=== PATIENT | female | born 1940 | race African-American/Black ===

== ENCOUNTER 2018-08-01 10:27 | Inpatient (IN) | payer MEDICARE, BC ==
[~2018-08-01] VITALS: Ht 182.9 cm; Wt 104.8 kg
[~2018-08-01 10:27] MED LIST: AMLO10TA80 PO; ASCO500T20 PO; ASPI-1160 PO; CHOL100022 PO; FAMO20TA8 PO; FISH PO; FOLI0.4T2 PO; HYDR-4134 PO; HYDR12.529 PO; LACT1CAP77 PO; SYN150 PO
[2018-08-01] MEDS ORDERED: ASPIRIN 81MG TABLET PO ONE (10:45)
[2018-08-01 11:37] LABS: BASOPHILS % 1.1 % (0.0-2.0); EOSINOPHILS % 3.1 % (0.0-5.0); HEMATOCRIT. 38.6 % (36.0-48.0); HEMOGLOBIN. 12.4 g/dL (12.0-16.0); LYMPHOCYTES % 22.7 % (20.0-50.0); MEAN CORPUSCULAR VOLUME 83.9 fL (81.0-99.0); MEAN PLATELET VOLUME 8.1 fl (7.4-10.4); MONOCYTES % 10.6 % (2.0-8.0); NEUTROPHILS % 62.5 % (40.0-76.0); PLATELET 231 x1000/uL (130-400); RED CELL DISTRIBUTION WIDTH 14.9 % (11.6-14.6)
[2018-08-01 11:45] LABS: CLARITY URINE CLEAR (CLEAR); COLOR URINE YELLOW (YELLOW); KETONES URINE NEGATIVE (NEGATIVE); LEUKOCYTE ESTERASE URINE NEGATIVE (NEGATIVE); NITRITE URINE NEGATIVE (NEGATIVE); OCCULT BLOOD URINE NEGATIVE (NEGATIVE); PROTEIN URINE NEGATIVE (NEGATIVE); SPECIFIC GRAVITY URINE 1.003 (1.005-1.030); UROBILINOGEN URINE 0.2 E.U./dL (0.2-1.0)
[2018-08-01 11:48] LABS: CHLORIDE 106 mEq/L (98-107)
[2018-08-01] MEDS ORDERED: KETOROLAC 15MG/ML VIAL IV ONE (12:00)
[2018-08-01] MEDS ORDERED: NITROGLYCERIN 0.4MG TABLET SL SL ONE (12:00)
[2018-08-01] MEDS ORDERED: HYDROCODONE/ACETAMINOPHEN 5/325MG TABLET PO ONE (16:15)
[2018-08-01] MEDS ORDERED: NITROGLYCERIN OINT 1GM/INCH UDPKT TD NR (20:15)
[2018-08-02] MEDS: HYDROCODONE/ACETAMINOPHEN 5/325MG TABLET PO PRN ×3 (00:26→21:28)
[2018-08-02 02:00] VITALS: BP 141/85
[2018-08-02] MEDS ORDERED: ALPRAZOLAM 0.5 MG TABLET PO PRN (02:30)
[2018-08-02] MEDS ORDERED: MAGNESIUM CITRATE 300ML SOLUTION PO PRN ×2 (02:30→04:00)
[2018-08-02] MEDS ORDERED: ZOLPIDEM TARTRATE 5MG TABLET PO PRN (02:30)
[2018-08-02] MEDS ORDERED: ONDANSETRON HCL 4MG/2ML INJ IV PRN (02:30)
[2018-08-02 04:00] VITALS: BP_SYST 104; BP_SYST 143; BP_DIAS 66; BP_DIAS 84
[2018-08-02 06:16] LABS: CHLORIDE 106 mEq/L (98-107)
[2018-08-02] MEDS: NITROGLYCERIN OINT 1GM/INCH UDPKT TD SCH ×3 (06:16→21:12)
[2018-08-02 06:23] LABS: HDL CHOLESTEROL 74 mg/dL (40-59); LDL CHOLESTEROL 110 mg/dL (5-100); PHOSPHORUS 3.5 mg/dL (2.5-4.9)
[2018-08-02 06:25] LABS: T4 FREE 1.21 ng/dL (0.76-1.46)
[2018-08-02 06:27] LABS: TOTAL IRON BINDING CAPACITY 304 ug/dL (250-450)
[2018-08-02 06:28] LABS: BASOPHILS % 0.9 % (0.0-2.0); HEMATOCRIT. 36.8 % (36.0-48.0); MEAN CORPUSCULAR HEMOGLOBIN 27.1 pg (28.0-32.0); MEAN CORPUSCULAR VOLUME 83.1 fL (81.0-99.0); MEAN PLATELET VOLUME 8.3 fl (7.4-10.4); MONOCYTES % 13.3 % (2.0-8.0); NEUTROPHILS % 47.8 % (40.0-76.0); PLATELET 222 x1000/uL (130-400); RED BLOOD CELL COUNT 4.43 mill/uL (4.2-5.4); RED CELL DISTRIBUTION WIDTH 14.8 % (11.6-14.6)
[2018-08-02 08:00] VITALS: BP 124/72
[2018-08-02] MEDS: OMEPRAZOLE 20MG CAPSULE EXTENDED RELEASE PO SCH ×2 (08:32→21:11)
[2018-08-02] MEDS: DOCUSATE SODIUM 100MG CAPSULE PO SCH ×2 (08:32→16:43)
[2018-08-02] MEDS: AMLODIPINE 5MG TABLET PO SCH (08:33)
[2018-08-02] MEDS: ENOXAPARIN 30MG/0.3ML SYR SUBCUT SCH ×2 (08:33→21:12)
[2018-08-02] MEDS: ASPIRIN 81MG EC TABLET PO SCH (08:33)
[2018-08-02] MEDS: CELECOXIB 200MG CAPSULE PO SCH ×2 (11:01→16:43)
[2018-08-02] MEDS ORDERED: POTASSIUM BICARB/CIT ACID 25 MEQ TABLET.EFF PO SCH (11:30)
[2018-08-02 12:00] VITALS: BP 111/70
[2018-08-02] MEDS: POTASSIUM BICARB/CIT ACID 25 MEQ TABLET.EFF PO SCH ×3 (12:19→16:44)
[2018-08-02] MEDS ORDERED: REGADENOSON 0.4 MG/5 ML IV SCH (13:15)
[2018-08-02 16:00] VITALS: BP 142/77
[2018-08-02 20:00] VITALS: BP 146/73
[2018-08-03] VITALS: BP 140/65
[2018-08-03 04:00] VITALS: BP 137/45
[2018-08-03] MEDS: NITROGLYCERIN OINT 1GM/INCH UDPKT TD SCH ×3 (06:00→14:00)
[2018-08-03 06:29] LABS: CHLORIDE 105 mEq/L (98-107)
[2018-08-03 06:31] LABS: BASOPHILS % 0.9 % (0.0-2.0); EOSINOPHILS % 4.5 % (0.0-5.0); HEMATOCRIT. 35.2 % (36.0-48.0); HEMOGLOBIN. 11.5 g/dL (12.0-16.0); LYMPHOCYTES % 29.8 % (20.0-50.0); MEAN CORPUSCULAR HEMOGLOBIN 27.1 pg (28.0-32.0); MEAN CORPUSCULAR VOLUME 83.3 fL (81.0-99.0); MEAN PLATELET VOLUME 8.3 fl (7.4-10.4); MONOCYTES % 12.7 % (2.0-8.0); NEUTROPHILS % 52.1 % (40.0-76.0); PLATELET 190 x1000/uL (130-400); RED BLOOD CELL COUNT 4.22 mill/uL (4.2-5.4); RED CELL DISTRIBUTION WIDTH 14.7 % (11.6-14.6)
[2018-08-03 06:50] LABS: PHOSPHORUS 3.6 mg/dL (2.5-4.9)
[2018-08-03 08:00] VITALS: BP 127/72
[2018-08-03] MEDS ORDERED: REGADENOSON 0.4 MG/5 ML IV ONE (09:30)
[2018-08-03] MEDS: ENOXAPARIN 30MG/0.3ML SYR SUBCUT SCH (10:44)
[2018-08-03] MEDS: CELECOXIB 200MG CAPSULE PO SCH ×2 (10:44→17:25)
[2018-08-03] MEDS: ASPIRIN 81MG EC TABLET PO SCH (10:44)
[2018-08-03] MEDS: DOCUSATE SODIUM 100MG CAPSULE PO SCH ×2 (10:44→17:25)
[2018-08-03] MEDS: POTASSIUM BICARB/CIT ACID 25 MEQ TABLET.EFF PO SCH ×2 (10:44→17:25)
[2018-08-03] MEDS: OMEPRAZOLE 20MG CAPSULE EXTENDED RELEASE PO SCH (10:44)
[2018-08-03] MEDS: AMLODIPINE 5MG TABLET PO SCH (10:45)
[2018-08-03] MEDS: HYDROCODONE/ACETAMINOPHEN 5/325MG TABLET PO PRN (10:58)
[2018-08-03 12:00] VITALS: BP 116/74
[2018-08-03 14:54] VITALS: BP 143/85
[2018-08-03 16:00] VITALS: BP 143/85
[2018-08-03] MEDS ORDERED: FAMOTIDINE 20MG TABLET PO SCH (21:00)
[2018-08-04 09:06] LABS: HELICOBACTER PYLORI AB IGG 1.5 (0.00-0.79)
[2018-08-09 04:11] LABS: 25-HYDROXY VITAMIN D3 47 ng/mL (.)
== END 2018-08-03 18:05 | disposition home health service (06) | DRG 313 ==
LOC: ER 10:27 → 7WST 13:38 → EDBEDREQ 13:42 → EDBEDREQTM 13:42 → ENRESERV 21:15
PROVIDERS: ADMIT Internal Medicine; ATTEND Internal Medicine
DX: R07.9 Chest pain, unspecified (principal); E87.6 Hypokalemia; E78.5 Hyperlipidemia, unspecified; E78.00 Pure hypercholesterolemia, unspecified; Z96.659 Presence of unspecified artificial knee joint; I11.9 Hypertensive heart disease without heart failure; M17.0 Bilateral primary osteoarthritis of knee; E89.0 Postprocedural hypothyroidism; Z82.49 Family history of ischemic heart disease and other diseases of the circulatory system; Z88.8 Allergy status to other drugs, medicaments and biological substances; Z83.3 Family history of diabetes mellitus
CPT/HCPCS: 36415; 71045; 78452; 80048; 80061; 80069; 82248; 82306; 83036; 83540; 83550; 83735; 83880; 84100; 84439; 84443; 84480; 84484; 84550; 85651; 86644; 86677; 93005; 93017; 93306; 93970; 96374; 99285; A9500; J1650; J1885; J2785

== ENCOUNTER 2022-04-13 22:58 | Emergency (ER) | payer MEDICARE, BC ==
[~2022-04-13] VITALS: Ht 162.6 cm; Wt 106.0 kg
[~2022-04-13 22:58] MED LIST changes: -FOLI0.4T2 PO; +FOLI0.4T6 PO
[2022-04-13] MEDS ORDERED: NITROGLYCERIN 0.4MG TABLET SL SL PRN (23:30)
[2022-04-13] MEDS ORDERED: ASPIRIN 81MG TABLET PO ONE (23:30)
[2022-04-13 23:59] LABS: BASOPHILS % 0.9 % (0.0-2.0); EOSINOPHILS % 4.1 % (0.0-5.0); HEMATOCRIT. 38.5 % (36.0-48.0); HEMOGLOBIN. 12.6 g/dL (12.0-16.0); LYMPHOCYTES % 24.9 % (20.0-50.0); MEAN CORPUSCULAR HEMOGLOBIN 27.9 pg (28.0-32.0); MEAN PLATELET VOLUME 7.8 fl (7.4-10.4); MONOCYTES % 10.6 % (2.0-8.0); NEUTROPHILS % 59.5 % (40.0-76.0); PLATELET 231 x1000/uL (130-400); RED BLOOD CELL COUNT 4.53 mill/uL (4.2-5.4); RED CELL DISTRIBUTION WIDTH 15.4 % (11.6-14.6)
[2022-04-14 01:09] LABS: CHLORIDE 109 mEq/L (98-107)
[2022-04-14 04:41] VITALS: BP 154/84
== END 2022-04-14 04:49 | disposition home or self-care (01) ==
LOC: ER 23:33
DX: R07.89 Other chest pain (principal); E78.00 Pure hypercholesterolemia, unspecified; I10 Essential (primary) hypertension; E03.9 Hypothyroidism, unspecified; G47.30 Sleep apnea, unspecified; Z88.6 Allergy status to analgesic agent; Z88.8 Allergy status to other drugs, medicaments and biological substances; Z98.890 Other specified postprocedural states
CPT/HCPCS: 36415; 71045; 80053; 83880; 84484; 85025; 93005; 99285

== ENCOUNTER 2022-06-25 23:14 | Emergency (ER) | payer MEDICARE, BC ==
[~2022-06-25] VITALS: Ht 170.2 cm; Wt 90.0 kg
[2022-06-26] MEDS ORDERED: ONDANSETRON HCL 4MG/2ML INJ IV STA ×2 (00:13→02:53)
[2022-06-26] MEDS ORDERED: MORPHINE SULFATE 4 MG/ML CPJ (NOT FOR IM USE) IV STA ×2 (00:13→02:53)
[2022-06-26 00:40] LABS: EOSINOPHILS % 3.2 % (0.0-5.0); HEMATOCRIT. 35.4 % (36.0-48.0); HEMOGLOBIN. 11.6 g/dL (12.0-16.0); LYMPHOCYTES % 20.4 % (20.0-50.0); MEAN CORPUSCULAR HEMOGLOBIN 27.6 pg (28.0-32.0); MEAN CORPUSCULAR VOLUME 84.5 fL (81.0-99.0); MEAN PLATELET VOLUME 7.3 fl (7.4-10.4); MONOCYTES % 13.6 % (2.0-8.0); NEUTROPHILS % 61.8 % (40.0-76.0); PLATELET 213 x1000/uL (130-400); RED CELL DISTRIBUTION WIDTH 14.8 % (11.6-14.6)
[2022-06-26 00:48] LABS: CHLORIDE 101 mEq/L (98-107)
[2022-06-26] MEDS ORDERED: NITROGLYCERIN OINT 1GM/INCH UDPKT TD ONE (03:00)
[2022-06-26] MEDS ORDERED: IOHEXOL-350 100 ML BOTTLE ONE (06:42)
[2022-06-26 13:00] VITALS: BP 142/77
[2022-06-26] MEDS ORDERED: APIXABAN 5 MG TABLET PO SCH (17:00)
== END 2022-06-26 13:22 | disposition left against medical advice (07) ==
LOC: ER 23:14 → EDBEDREQTM 06-26 03:56 → EDBEDREQ 06-26 03:56 → ER 06-26 13:22
DX: R07.9 Chest pain, unspecified (principal); I11.0 Hypertensive heart disease with heart failure; I50.9 Heart failure, unspecified; E78.00 Pure hypercholesterolemia, unspecified; E03.9 Hypothyroidism, unspecified; Z88.4 Allergy status to anesthetic agent; Z88.6 Allergy status to analgesic agent; Z88.8 Allergy status to other drugs, medicaments and biological substances; Z79.01 Long term (current) use of anticoagulants
CPT/HCPCS: 36415; 71045; 71275; 80053; 80061; 83880; 84484; 85025; 85379; 93971; 96374; 96375; 99285; J2270; J2405; Q9967; A4315